=== PATIENT | male | born 1970 | race Caucasian/White ===

== ENCOUNTER 2017-12-27 09:15 | Inpatient (IN) | payer OTHER ==
[2017-12-27] MEDS: SOD CHLORIDE 0.9% 1,000 ML IV ×2 (09:00→10:51)
[2017-12-27 09:53] LABS: ADD MAN DIFF? NO
[2017-12-27 09:58] LABS: BASOPHILS % 0.5 % (0.0-2.0); EOSINOPHILS % 0.7 % (0.0-7.0); HEMATOCRIT 44.1 % (42.0-52.0); HEMOGLOBIN 15.5 g/dl (14.0-18.0); LYMPHOCYTES # 1.6 10^3/ul (0.8-2.9); MEAN CORPUSCULAR HEMOGLOBIN 29.7 pg (29.0-33.0); MEAN CORPUSCULAR HGB CONC 35.1 g/dl (32.0-37.0); MEAN CORPUSCULAR VOLUME 84.5 fl (82.0-101.0); MEAN PLATELET VOLUME 10.9 fl (7.4-10.4); MONOCYTE # 0.6 10^3/ul (0.3-0.9); MONOCYTES % 10.1 % (0.0-11.0); NEUTROPHIL # 3.7 10^3/ul (1.6-7.5); NEUTROPHILS % 61.5 % (39.0-77.0); PLATELET COUNT 169 10^3/UL (140-415); RED BLOOD COUNT 5.22 10^6/ul (4.70-6.10); RED CELL DISTRIBUTION WIDTH 11.8 % (11.5-14.5)
[2017-12-27 10:14] LABS: ALANINE AMINOTRANSFERASE 42 IU/L (13-69); ALBUMIN 3.5 g/dl (3.3-4.9); ALBUMIN/GLOBULIN RATIO 1.06; ALKALINE PHOSPHATASE 109 IU/L (42-121); ASPARTATE AMINO TRANSFERASE 26 IU/L (15-46); BILIRUBIN,INDIRECT 0.6 mg/dl (0-1.1); BILIRUBIN,TOTAL 0.6 mg/dl (0.2-1.3); BLOOD UREA NITROGEN 19 mg/dl (7-20); CALCIUM 9.4 mg/dl (8.4-10.2); CARBON DIOXIDE 28 mmol/L (21-31); CHLORIDE 102 mmol/L (97-110); CHOL/HDL RATIO 4.9 RATIO; CHOLESTEROL 162 mg/dl (100-200); CREATININE 0.79 mg/dl (0.61-1.24); GLUCOSE 260 mg/dl (70-220); HDL CHOLESTEROL 33 mg/dl (27-67); LDL CHOLESTEROL,CALCULATED 89 mg/dl; POTASSIUM 4.1 mmol/L (3.5-5.1); SODIUM 138 mmol/L (135-144); TOTAL PROTEIN 6.8 g/dl (6.1-8.1); TRIGLYCERIDES 200 mg/dl (0-149)
[2017-12-27 10:19] LABS: INR 0.87; PARTIAL THROMBOPLASTIN TIME 26.7 Sec (23.0-35.0); PROTIME 11.9 Sec (11.9-14.9); PT RATIO 0.9
[2017-12-27 10:25] LABS: TROPONIN-I < 0.012 ng/ml (0.000-0.120)
[2017-12-27] MEDS: ASPIRIN 81 MG TAB PO (10:50)
[2017-12-27] MEDS ORDERED: ONDANSETRON 4 MG INJ IV ×2 (11:00→14:30)
[2017-12-27] MEDS ORDERED: ACETAMINOPHEN 325 MG TAB PO (11:00)
[2017-12-27] MEDS ORDERED: HYDROCODONE/APAP (5/325) TAB PO ×2 (14:30)
[2017-12-27] MEDS ORDERED: NACL 0.9% 3 ML SYG IV (14:30)
[2017-12-27] MEDS ORDERED: DOCUSATE SODIUM 100 MG CAP PO (14:30)
[2017-12-27] MEDS: metFORMIN 500 MG TAB PO (17:13)
[2017-12-27] MEDS: glipiZIDE 5 MG TAB PO (17:13)
[2017-12-27] MEDS ORDERED: DEXTROSE 50% 50 ML SYRINGE IV ×2 (19:00)
[2017-12-27] MEDS ORDERED: GLUCOSE GEL 15 GRAM TUBE BUCCAL (19:00)
[2017-12-27] MEDS ORDERED: GLUCOSE GEL 15 GRAM TUBE PO ×2 (19:00)
[2017-12-27] MEDS ORDERED: GLUCAGON 1 MG INJ IM (19:00)
[2017-12-27] MEDS: ROSUVASTATIN CALCIUM 40 MG TABLET PO (20:35)
[2017-12-27] MEDS: METOPROLOL 25 MG TAB PO (20:36)
[2017-12-27] MEDS: INSULIN ASPART [NOVOLOG] 3 ML PEN SC (20:38)
[2017-12-27] MEDS ORDERED: EZETIMIBE 10 MG TAB PO (21:00)
[2017-12-27] MEDS ORDERED: glipiZIDE 5 MG TAB PO (21:00)
[2017-12-27] MEDS ORDERED: ROSUVASTATIN CALCIUM 40 MG TABLET PO (21:00)
[2017-12-27] MEDS: GABAPENTIN 100 MG CAP PO (21:22)
[2017-12-28] MEDS: ACCU-CHEK XX (01:53)
[2017-12-28] MEDS: PANTOPRAZOLE (EC) 40 MG TAB PO (05:50)
[2017-12-28 07:25] LABS: ADD MAN DIFF? NO
[2017-12-28 07:28] LABS: BASOPHIL # 0.1 10^3/ul (0.0-0.1); BASOPHILS % 0.8 % (0.0-2.0); EOSINOPHILS # 0.1 10^3/ul (0.0-0.5); EOSINOPHILS % 1.4 % (0.0-7.0); HEMATOCRIT 43.3 % (42.0-52.0); HEMOGLOBIN 15.2 g/dl (14.0-18.0); LYMPHOCYTES # 1.4 10^3/ul (0.8-2.9); LYMPHOCYTES % 20.5 % (15.0-51.0); MEAN CORPUSCULAR HGB CONC 35.1 g/dl (32.0-37.0); MEAN CORPUSCULAR VOLUME 85.6 fl (82.0-101.0); MONOCYTE # 0.7 10^3/ul (0.3-0.9); MONOCYTES % 10.7 % (0.0-11.0); NEUTROPHIL # 4.4 10^3/ul (1.6-7.5); NEUTROPHILS % 66.4 % (39.0-77.0); PLATELET COUNT 157 10^3/UL (140-415); RED BLOOD COUNT 5.06 10^6/ul (4.70-6.10); RED CELL DISTRIBUTION WIDTH 11.9 % (11.5-14.5)
[2017-12-28 07:28] LABS: WHITE BLOOD COUNT 6.6 10^3/ul (4.8-10.8)
[2017-12-28 07:49] LABS: ALANINE AMINOTRANSFERASE 39 IU/L (13-69); ALBUMIN 3.7 g/dl (3.3-4.9); ALBUMIN/GLOBULIN RATIO 1.27; ALKALINE PHOSPHATASE 92 IU/L (42-121); ASPARTATE AMINO TRANSFERASE 27 IU/L (15-46); BILIRUBIN,INDIRECT 0.5 mg/dl (0-1.1); BILIRUBIN,TOTAL 0.5 mg/dl (0.2-1.3); BLOOD UREA NITROGEN 20 mg/dl (7-20); CALCIUM 9.1 mg/dl (8.4-10.2); CARBON DIOXIDE 24 mmol/L (21-31); CHLORIDE 106 mmol/L (97-110); CREATININE 0.72 mg/dl (0.61-1.24); GLUCOSE 256 mg/dl (70-220); POTASSIUM 4.3 mmol/L (3.5-5.1); SODIUM 141 mmol/L (135-144); TOTAL PROTEIN 6.6 g/dl (6.1-8.1)
[2017-12-28 07:55] LABS: MAGNESIUM 2.1 mg/dl (1.7-2.5)
[2017-12-28] MEDS: metFORMIN 500 MG TAB PO ×2 (07:59→17:56)
[2017-12-28] MEDS: glipiZIDE 5 MG TAB PO ×2 (07:59→17:56)
[2017-12-28] MEDS: CLOPIDOGREL 75 MG TAB PO (08:07)
[2017-12-28] MEDS: GABAPENTIN 100 MG CAP PO ×3 (08:07→20:34)
[2017-12-28] MEDS: METOPROLOL 25 MG TAB PO ×2 (08:07→20:34)
[2017-12-28] MEDS: LINAGLIPTIN 5 MG TABLET PO (08:07)
[2017-12-28] MEDS: ASPIRIN 81 MG TAB PO (08:07)
[2017-12-28] MEDS: ENOXAPARIN 30 MG/0.3 ML SYG SC (08:08)
[2017-12-28] MEDS: INSULIN ASPART [NOVOLOG] 3 ML PEN SC ×4 (08:20→20:45)
[2017-12-28 09:01] LABS: ANION GAP 8 (8-16)
[2017-12-28 09:31] LABS: ANION GAP 11 (8-16)
[2017-12-28] MEDS: ACETAMINOPHEN 325 MG TAB PO (20:34)
[2017-12-28] MEDS: ROSUVASTATIN CALCIUM 40 MG TABLET PO (20:34)
[2017-12-28] MEDS: INSULIN GLARGINE [LANTus] (100 UNITS/ML) SYG SC (20:38)
[2017-12-29] MEDS: ACCU-CHEK XX (02:00)
[2017-12-29] MEDS: PANTOPRAZOLE (EC) 40 MG TAB PO (04:16)
[2017-12-29] MEDS: INSULIN ASPART [NOVOLOG] 3 ML PEN SC ×5 (07:43→20:13)
[2017-12-29] MEDS: GABAPENTIN 100 MG CAP PO ×3 (08:11→20:02)
[2017-12-29] MEDS: CLOPIDOGREL 75 MG TAB PO (08:11)
[2017-12-29] MEDS: glipiZIDE 5 MG TAB PO (08:11)
[2017-12-29] MEDS: ASPIRIN 81 MG TAB PO (08:11)
[2017-12-29] MEDS: LINAGLIPTIN 5 MG TABLET PO (08:11)
[2017-12-29] MEDS: metFORMIN 500 MG TAB PO ×2 (08:12→17:31)
[2017-12-29] MEDS: METOPROLOL 25 MG TAB PO ×2 (08:12→20:02)
[2017-12-29] MEDS: ENOXAPARIN 30 MG/0.3 ML SYG SC (08:17)
[2017-12-29] MEDS: SOD CHLORIDE 0.9% 100 ML (12:34)
[2017-12-29] MEDS: IOHEXOL 100 ML (12:35)
[2017-12-29] MEDS: ACETAMINOPHEN 325 MG TAB PO (20:01)
[2017-12-29] MEDS: ROSUVASTATIN CALCIUM 40 MG TABLET PO (20:02)
[2017-12-29] MEDS: INSULIN GLARGINE [LANTus] (100 UNITS/ML) SYG SC (20:05)
[2017-12-30] MEDS: ACCU-CHEK XX (02:00)
[2017-12-30] MEDS: PANTOPRAZOLE (EC) 40 MG TAB PO (05:47)
[2017-12-30] MEDS: INSULIN ASPART [NOVOLOG] 3 ML PEN SC ×2 (07:55)
[2017-12-30] MEDS: GABAPENTIN 100 MG CAP PO (08:33)
[2017-12-30] MEDS: CLOPIDOGREL 75 MG TAB PO (08:33)
[2017-12-30] MEDS: LINAGLIPTIN 5 MG TABLET PO (08:33)
[2017-12-30] MEDS: FENOFIBRATE 145 MG TAB PO (08:33)
[2017-12-30] MEDS: ASPIRIN 81 MG TAB PO (08:33)
[2017-12-30] MEDS: METOPROLOL 25 MG TAB PO (08:33)
[2017-12-30] MEDS: metFORMIN 500 MG TAB PO (08:40)
[2017-12-30] MEDS: ENOXAPARIN 30 MG/0.3 ML SYG SC (08:46)
== END 2017-12-30 10:47 | disposition home or self-care (01) | DRG 66 ==
LOC: E/R 09:15 → TEL 10:52
DX: I63.9 Cerebral infarction, unspecified (principal); E11.65 Type 2 diabetes mellitus with hyperglycemia; I25.10 Atherosclerotic heart disease of native coronary artery without angina pectoris; I10 Essential (primary) hypertension; E78.5 Hyperlipidemia, unspecified; F17.200 Nicotine dependence, unspecified, uncomplicated; R06.6 Hiccough; R20.0 Anesthesia of skin; I69.398 Other sequelae of cerebral infarction; Z95.5 Presence of coronary angioplasty implant and graft; Z79.4 Long term (current) use of insulin
CPT/HCPCS: 36415; 70450; 70496; 70498; 70544; 70548; 70551; 71045; 80053; 80061; 82962; 83036; 83735; 84484; 85025; 85610; 85730; 92610; 93005; 93306; 97161; 97166; 99285-25